=== PATIENT | female | born 1940 | race Caucasian/White ===

== ENCOUNTER 2016-09-12 08:09 | Emergency (ER) | payer OTHER ==
[~2016-09-12] VITALS: Ht 162.6 cm; Wt 68.9 kg
[~2016-09-12 08:09] MED LIST: ADVAIR 500-501 EACH IH; ADVAIR 500/501 DISK IH; ALBUTEROL INHALATION IH; ALBUTEROL SULFATE IH; ALPHAGAN P100 DROP/5 LEFT EYE; ATROVENT 00.5 MG/2.5 IH; Alphagan P 0.15% Oph; Atrovent HFA Inhaler IH; BACTRIM,SEPT1 TABLET PO; BENADRYL25 MG PO; BENTYL20 MG PO; CARTIA XT240 MG PO; CEFTIN500 MG PO; CIPRO500 MG PO; COMBIGAN O20 DROP/5 BOTH EYES; DILAUDID2 MG PO; DILTIAZEM 24HR240 MG PO; DILTIAZEM ER240 M2 PO; DULERA 200 MCG/13 GM IH; DUONEB 2.5-0.5 M3 ML IH; DUREZOL 0.100 DROP/5 BOTH EYES; ENDOCET 5-3251 EACH PO; FLOVENT DISKUS1 DIS2 IH; IPRATR-ALBUTEROL3 ML IH; IPRATROPIU0.2 MG/1 M IH; KEFLEX500 MG PO; LEVAQUIN750 MG PO; LISINOPRIL10 MG PO; Levaquin PO; NEOSPORIN ANT70.8 GM TP; PAIN RELIEF650 MG PO; PEPCID20 MG PO; PLAVIX75 MG PO; PREDNISONE10 MG PO; PREDNISONE20 MG PO; PROMETHAZINE HC25 M1 PO; PROVENTIL,2.5 MG/0.5 IH; PROVENTIL,2.5 MG/3 M IH; Phenergan PO; Proventil,Ventolin H IH; ROBITUSSIN DM118 ML PO; STOOL SOFTENER100 M1 PO; SYNTHROID PO; SYNTHROID125 MCG PO; THEO-DUR,THEOC100 MG PO; THEO-DUR,THEOC300 MG PO; TYLENOL EXTRA500 MG PO; VENTOLIN HFA18 GM IH; VITAMIN D1000 UNIT PO; XALATAN2.5 ML BOTH EYES; predniSONE PO
[2016-09-12 08:59] LABS: EOSINOPHIL (%) 1.2 % (0-5); EOSINOPHIL COUNT 0.1 K/uL (0-0.3); HEMATOCRIT 39.8 % (36.0-46.0); IMMATURE GRANULOCYTE (%) 0.3 % (0.0-0.7); LYMPHOCYTE COUNT 1.9 K/uL (1.0-2.8); MCH 26.8 PG (29.0-34.0); MCHC 32.2 G/DL (30.0-36.0); MCV 83.4 FL (83-99); MONOCYTE (%) 10.5 % (3-12); MONOCYTE COUNT 0.7 K/uL (0-0.8); PLATELET COUNT 359 K/uL (156-360); RBC DIS.WIDTH-CV 12.9 % (11.8-14.6); RED BLOOD COUNT 4.77 M/uL (3.80-5.20); WHITE BLOOD COUNT 6.8 K/uL (4.1-10.2)
[2016-09-12 09:14] LABS: INTER. NORMALIZED RATIO 1.1; PROTHROMBIN TIME 10.8 (9.2-11.2); PTT 27.3 (25-32)
[2016-09-12 09:29] LABS: ANION GAP 9 MEQ/L (2-14); CHLORIDE 99 MEQ/L (99-109); POTASSIUM 4.2 MEQ/L (3.7-5.4); SAMPLE HEMOLYSIS CHECK 0; SAMPLE ICTERIC CHECK 0; SAMPLE LIPEMIA CHECK 0; SODIUM 135 MEQ/L (136-147)
[2016-09-12 09:34] LABS: GFR ESTIMATE (CALCULATED) 57 mL/min/; GLUCOSE 99 mg/dL (70-99); UREA NITROGEN (BUN) 24 mg/dL (9-23)
[2016-09-12 09:38] LABS: TROP-I INTERPRETATION NEGATIVE; TROPONIN-I < 0.01 ng/mL (0.0-0.30)
[2016-09-12 13:22] LABS: TROP-I INTERPRETATION NEGATIVE; TROPONIN-I < 0.01 ng/mL (0.0-0.30)
[2016-09-12 13:47] VITALS: BP 152/96
[2016-09-12] MEDS ORDERED: LEVAQUIN750 MG PO (13:49)
[2016-09-12] MEDS ORDERED: PREDNISONE50 MG PO (13:49)
[2016-09-13] MEDS ORDERED: LEVAQUIN750 MG PO (23:27)
[2016-09-13] MEDS ORDERED: SYNTHROID150 MCG PO (23:28)
[2016-09-13] MEDS ORDERED: AZITHROMYCIN250 MG1 PO (23:29)
== END 2016-09-12 14:08 | disposition home or self-care (01) ==
LOC: EME → EDBD 08:09 → EME 14:08
PROVIDERS: Emergency Medicine
DX: J44.0 Chronic obstructive pulmonary disease with (acute) lower respiratory infection (principal); J20.9 Acute bronchitis, unspecified; J44.1 Chronic obstructive pulmonary disease with (acute) exacerbation; J45.909 Unspecified asthma, uncomplicated; I10 Essential (primary) hypertension; I25.2 Old myocardial infarction; E03.9 Hypothyroidism, unspecified; Z86.73 Personal history of transient ischemic attack (TIA), and cerebral infarction without residual deficits; Z98.61 Coronary angioplasty status; Z72.0 Tobacco use
CPT/HCPCS: 71010; 80048; 83880; 84484; 85025; 85610; 85730; 93005; 94640; 99281; 99283; J2930

== ENCOUNTER 2016-09-13 17:41 | Inpatient (IN) | payer OTHER ==
[~2016-09-13] VITALS: Ht 162.6 cm; Wt 68.3 kg
[~2016-09-13 17:41] MED LIST changes: +PREDNISONE50 MG PO
[2016-09-13 18:41] LABS: HEMATOCRIT 37.5 % (36.0-46.0); MCH 27.1 PG (29.0-34.0); MCHC 33.1 G/DL (30.0-36.0); MCV 81.9 FL (83-99); MEAN PLAT.VOLUME 9.1 uM^3 (9.5-12.4); PLATELET COUNT 390 K/uL (156-360); RBC DIS.WIDTH-CV 12.9 % (11.8-14.6); RBC DIS.WIDTH-SD 38.5 % (39-53); RED BLOOD COUNT 4.58 M/uL (3.80-5.20); WHITE BLOOD COUNT 6.7 K/uL (4.1-10.2)
[2016-09-13 18:54] LABS: CHLORIDE 102 mEq/L (99-109); POTASSIUM 4.5 mEq/L (3.7-5.4); SODIUM 138 mEq/L (136-147)
[2016-09-13 18:55] LABS: GLUCOSE 141 mg/dL (70-99)
[2016-09-13 18:57] LABS: ANION GAP 11 MEQ/L (2-14)
[2016-09-13 18:59] LABS: GFR ESTIMATE (CALCULATED) 51 mL/min/
[2016-09-13 19:02] LABS: UREA NITROGEN (BUN) 39 mg/dL (9-23)
[2016-09-13 19:05] LABS: D-DIMER ELISA > 4.00 mg/L FEU (< 0.57)
[2016-09-13 19:06] LABS: TROP-I INTERPRETATION NEGATIVE; TROPONIN-I < 0.01 ng/mL (0.0-0.30)
[2016-09-13] MEDS ORDERED: LEVAQUIN750 MG PO (23:27)
[2016-09-13] MEDS ORDERED: SYNTHROID150 MCG PO (23:28)
[2016-09-13] MEDS ORDERED: AZITHROMYCIN250 MG1 PO (23:29)
[2016-09-14 02:03] VITALS: BP 142/69
[2016-09-14 08:03] VITALS: BP 163/90
[2016-09-14 12:15] VITALS: BP 150/71
[2016-09-14 15:11] VITALS: BP 149/73
[2016-09-14 19:42] VITALS: BP 146/72
[2016-09-14 23:16] VITALS: BP 145/64
[2016-09-15 04:00] VITALS: BP 133/69
[2016-09-15 07:16] LABS: HEMATOCRIT 35.7 % (36.0-46.0); MCH 26.4 PG (29.0-34.0); MCHC 32.2 G/DL (30.0-36.0); MCV 81.9 FL (83-99); MEAN PLAT.VOLUME 9.2 uM^3 (9.5-12.4); PLATELET COUNT 371 K/uL (156-360); RBC DIS.WIDTH-SD 38.9 % (39-53); RED BLOOD COUNT 4.36 M/uL (3.80-5.20); WHITE BLOOD COUNT 5.1 K/uL (4.1-10.2)
[2016-09-15 07:47] LABS: ANION GAP 7 MEQ/L (2-14); CHLORIDE 100 MEQ/L (99-109); GFR ESTIMATE (CALCULATED) 57 mL/min/; GLUCOSE 139 mg/dL (70-99); POTASSIUM 4.5 MEQ/L (3.7-5.4); SAMPLE HEMOLYSIS CHECK 0; SAMPLE ICTERIC CHECK 0; SAMPLE LIPEMIA CHECK 0; SODIUM 137 MEQ/L (136-147); UREA NITROGEN (BUN) 36 mg/dL (9-23)
[2016-09-15 07:56] VITALS: BP 149/82
[2016-09-15 11:35] VITALS: BP 151/74
[2016-09-15 15:58] VITALS: BP 144/71
[2016-09-15 19:58] VITALS: BP 138/77
[2016-09-15 23:46] VITALS: BP 150/71
[2016-09-16 03:26] VITALS: BP 145/77
[2016-09-16 07:25] VITALS: BP 158/71
[2016-09-16 11:01] VITALS: BP 142/66
[2016-09-16 15:42] VITALS: BP 144/75
[2016-09-16 20:39] VITALS: BP 151/79
[2016-09-17 00:23] VITALS: BP 166/80
[2016-09-17 04:06] VITALS: BP 156/80
[2016-09-17 09:04] VITALS: BP 144/73
[2016-09-17] MEDS ORDERED: SPIRIVA RESPIMAT4 GM IH (09:55)
[2016-09-17] MEDS ORDERED: PREDNISONE10 MG PO (09:55)
== END 2016-09-17 12:40 | disposition home health service (06) | DRG 190 ==
LOC: EME 17:41 → 5SOUTH 23:57 → EDOF 23:57 → 5SOUTH 09-14 01:40
PROVIDERS: Emergency Medicine; Hospitalist
DX: J44.1 Chronic obstructive pulmonary disease with (acute) exacerbation (principal); J44.0 Chronic obstructive pulmonary disease with (acute) lower respiratory infection; J20.9 Acute bronchitis, unspecified; J96.21 Acute and chronic respiratory failure with hypoxia; J96.22 Acute and chronic respiratory failure with hypercapnia; Z99.81 Dependence on supplemental oxygen; R91.1 Solitary pulmonary nodule; F41.9 Anxiety disorder, unspecified; I25.10 Atherosclerotic heart disease of native coronary artery without angina pectoris; I25.2 Old myocardial infarction; E03.9 Hypothyroidism, unspecified; I12.9 Hypertensive chronic kidney disease with stage 1 through stage 4 chronic kidney disease, or unspecified chronic kidney disease; N18.3 Chronic kidney disease, stage 3 (moderate); Z66 Do not resuscitate; Z51.5 Encounter for palliative care; E87.2 Acidosis; E86.0 Dehydration; R41.0 Disorientation, unspecified; K21.9 Gastro-esophageal reflux disease without esophagitis; D47.3 Essential (hemorrhagic) thrombocythemia; F32.9 Major depressive disorder, single episode, unspecified; Z95.5 Presence of coronary angioplasty implant and graft; F17.200 Nicotine dependence, unspecified, uncomplicated; Z71.6 Tobacco abuse counseling
CPT/HCPCS: 71010; 71020; 71275; 80048; 82803; 83605; 83880; 84484; 85027; 85379; 87040; 93005; 94640; 94640 76; 94799; 97530 GO; 99202; 99281; 99285; J1100; J1940; J2930; J7512

== ENCOUNTER 2016-12-20 21:12 | Emergency (ER) | payer OTHER ==
[~2016-12-20] VITALS: Ht 162.6 cm; Wt 74.6 kg
[~2016-12-20 21:12] MED LIST changes: +AZITHROMYCIN250 MG1 PO; +SPIRIVA RESPIMAT4 GM IH; +SYNTHROID150 MCG PO
[2016-12-21] MEDS ORDERED: ATIVAN1 MG PO (02:15)
[2016-12-21 09:24] VITALS: BP 175/94
== END 2016-12-21 09:26 | disposition home or self-care (01) ==
LOC: EME 21:12
DX: F41.9 Anxiety disorder, unspecified (principal); R06.02 Shortness of breath; X08.8XXA Exposure to other specified smoke, fire and flames, initial encounter; J44.9 Chronic obstructive pulmonary disease, unspecified; Z99.81 Dependence on supplemental oxygen; I10 Essential (primary) hypertension; E03.9 Hypothyroidism, unspecified; Z79.02 Long term (current) use of antithrombotics/antiplatelets; Z95.5 Presence of coronary angioplasty implant and graft; Z87.891 Personal history of nicotine dependence
CPT/HCPCS: 71010; 93005; 94640